=== PATIENT | male | born 1940 | race Caucasian/White ===

== ENCOUNTER → 2016-12-02 08:50 | Outpatient (CLI) | payer OTHER ==
[2014-10-10 13:17] VITALS: BMI 29.4
[~2016-12-02 08:50] MED LIST: ALLEGRA-D1 TAB.SR .; ASPIRIN325 MG PO; BAYER CHEWABLE81 MG PO; EFFEXOR XR37.5 MG PO; FLOVENT DI50 MCG/DIS INH; LISINOPRIL5 MG PO; NEURONTIN600 MG PO; NITROSTAT0.4 MG SL; PHAZYME180 MG PO; PLAVIX75 MG PO; ZYRTEC10 MG PO
[2016-12-02 09:26] LABS: APPEARANCE HAZY (CLEAR); BILIRUBIN NEGATIVE (NEGATIVE); COLOR STRAW (YELLOW); GLUCOSE NEGATIVE (NEGATIVE); KETONE NEGATIVE (NEGATIVE); LEUKOCYTE ESTERASE NEGATIVE (NEGATIVE); NITRITE NEGATIVE (NEGATIVE); PROTEIN NEGATIVE (NEGATIVE); SPECIFIC GRAVITY 1.015 (1.005-1.020); UROBILINOGEN NORMAL (NORMAL)
[2016-12-02 09:54] LABS: ALBUMIN 4.1 g/dL (3.4-5.0); ALKALINE PHOSPHATASE 94 U/L (46-116); ALT (SGPT) 33 U/L (10-68); BILIRUBIN - TOTAL 0.37 mg/dL (0.2-1.3); CALC OSMOLALITY 290 mosm/kg (275-300); CALCIUM 9.7 mg/dL (8.5-10.1); CARBON DIOXIDE 29.2 mmol/L (21.0-32.0); CHLORIDE - SERUM 105 mmol/L (98-107); POTASSIUM - SERUM 4.5 mmol/L (3.5-5.1); PROTEIN - SERUM 8.1 g/dL (6.4-8.2); SODIUM 143 mmol/L (136-145); UREA NITROGEN 20 mg/dL (7-18); eGFR NON AFRICAN AMERICAN 78 mL/min (90-120)
[2016-12-02 09:55] LABS: GLUCOSE 147 mg/dL (74-106)
== END | disposition home or self-care (01) ==
LOC: D.LAB 08:00
PROVIDERS: Orthopaedic Surgery
DX: E11.65 Type 2 diabetes mellitus with hyperglycemia (principal)

== ENCOUNTER → 2017-09-23 10:01 | Outpatient (CLI) | payer OTHER ==
[2014-10-10 13:17] VITALS: BMI 29.4
== END | disposition home or self-care (01) ==
LOC: D.ECHO 10:01
DX: I25.10 Atherosclerotic heart disease of native coronary artery without angina pectoris (principal)